=== PATIENT | female | born 1985 | race Asian ===

== ENCOUNTER 2019-10-18 22:26 | Emergency (ER) | payer OTHER ==
[~2019-10-18] VITALS: Ht 157.5 cm; Wt 50.8 kg
[2019-10-18 23:49] LABS: BASOPHIL % 0.5 % (0-2); PLATELET COUNT 294 x10^3mcL (130-400); RED CELL DISTRIBUTION WIDTH 12.1 % (11.5-14.5)
[2019-10-18 23:58] LABS: CALCIUM 8.7 mg/dL (8.5-10.1); CARBON DIOXIDE 29.6 mmol/L (21-32); CHLORIDE SERUM 102 mmol/L (98-107); CREATININE SERUM 0.8 mg/dL (0.6-1.0); GFR1 > 60 mL/min; GLUCOSE SERUM 107 mg/dL (74-106); POTASSIUM SERUM 3.7 mmol/L (3.5-5.1); SODIUM SERUM 141 mmol/L (136-145)
[2019-10-19 00:12] LABS: ALBUMIN 4.2 g/dL (3.4-5.0); ALKALINE PHOSPHATASE 40 U/L (46-116); ALT/SGPT 24 U/L (14-59); AST/SGOT 18 U/L (15-37); BILIRUBIN TOTAL 0.6 mg/dL (0.20-1.00); FREE T4 1.16 ng/dL (0.76-1.46); MAGNESIUM 2.2 mg/dL (1.8-2.4); TOTAL PROTEIN, SERUM 7.4 g/dL (6.4-8.2)
[2019-10-19 01:00] LABS: microscopic required? YES; urine erythrocyte TRACE (NEGATIVE)
[2019-10-19 01:12] LABS: AMPHETAMINE QUAL UR NONE DETECTED (See below)
[2019-10-19 03:08] VITALS: BP 109/54
== END 2019-10-19 03:08 | disposition home or self-care (01) ==
LOC: ED 22:26 → EDSEX 22:26 → ED 10-19 03:08
PROVIDERS: Emergency Medicine
DX: R53.1 Weakness (principal); R20.2 Paresthesia of skin; Z91.013 Allergy to seafood
CPT/HCPCS: 84439; J7030; Q0092